=== PATIENT | female | born 1990 ===

== ENCOUNTER 2023-08-11 18:16 | Outpatient (CLI) | payer OTHER ==
--- NOTE | 2023-08-12 18:47 | Ultrasound Report ---
PROCEDURE: Pelvic w/Transvaginal INDICATIONS: AUB TECHNIQUE: Real-time scanning was performed of the pelvic organs, with image documentation. Additional endovagi nal scanning was necessary due to incomplete visualization of the adnexal and endometrial structures by transabdominal scanning. COMPARISON: None. FINDINGS: Uterus: Uterus is anteverted and normal in size at 9 x 4.5 x 6 cm. The myometrium is heterogeneous. The endometrium measures 15 mm in combined thickness with heterogeneous appearance. Cervix and vag juany are within normal limits. Ovaries: The right ovary measures 3.7 x 2.1 x 2.7 cm, with a calculated ovarian volume of 11 cc. Th e left ovary measures 4.3 x 3.2 x 4.1 cm, with a calculated ovarian volume of 28.6 cc. The ovaries h ave a normal sonographic appearance. Less than 12 follicles can be seen in each ovary. Complex cysti c lesion in the left ovary measuring 3.3 x 3.4 x 3.4 cm. No significant internal vascularity. Other: No pathologic free abdominal or pelvic fluid. IMPRESSION: 1.Endometrium measures 15 mm in combined thickness with heterogeneous appearance. 2.Complex cystic lesion in the left ovary measuring 3.3 x 3.4 x 3.4 cm. Differential includes a hemor rhagic cyst versus an endometrioma. Recommend a follow-up ultrasound in 6-8 weeks. Reviewed by: Inga Herbert MD on 08/12/2023 6:45 PM PDT Approved by: Inga Herbert MD on 08/12/2023 6:45 PM PDT Station ID: [id number]
== END 2023-08-11 18:17 | disposition home or self-care (01) ==
LOC: DI 18:16
PROVIDERS: ATTEND Student in an Organized Health Care Education/Training Program
DX: N83.9 Noninflammatory disorder of ovary, fallopian tube and broad ligament, unspecified (principal); N93.9 Abnormal uterine and vaginal bleeding, unspecified